=== PATIENT | male | born 1960 | race Caucasian/White ===

== ENCOUNTER 2019-04-28 08:00 | Outpatient (REF) | payer OTHER, SELFPAY ==
[2019-04-28 19:24] LABS: Anion Gap 10.2 mmol/L (3-11); BUN 18 mg/dL (7-18); CO2 24.8 mmol/L (21.0-32.0); CREATININE 1.07 mg/dL (0.70-1.30); Calcium 9.2 mg/dL (8.5-10.1); Calculated LDL 180 mg/dL; Chloride 105 mmol/L (98-107); Cholesterol 252 mg/dL (50-200); Glucose 109 mg/dL (70-100); HDL Cholesterol 35 mg/dL (40-60); Potassium 4.7 mmol/L (3.5-5.1); Sodium 140 mmol/L (136-145); Triglyceride 189 mg/dL (30-150)
== END 2019-04-28 08:20 ==
LOC: NCHCN 08:00
PROVIDERS: PCP Internal Medicine; Visit Provider Internal Medicine
DX: I10 Essential (primary) hypertension (principal); E78.5 Hyperlipidemia, unspecified
CPT/HCPCS: 80048; 80061

== ENCOUNTER 2019-12-04 12:18 | Outpatient (REF) | payer OTHER, SELFPAY ==
[2019-12-04 22:11] LABS: Hemoglobin A1C 5.7 % (3.8-5.6)
[2019-12-04 22:12] LABS: Calculated LDL 195 mg/dL (<100); Cholesterol 278 mg/dL (<200); Glucose 98 mg/dL (74-106); HDL Cholesterol 38 mg/dL (40-60); Triglyceride 225 mg/dL (<150)
== END 2019-12-04 12:38 ==
LOC: NCHCN 12:18
PROVIDERS: PCP Internal Medicine; Visit Provider Internal Medicine
DX: E78.5 Hyperlipidemia, unspecified (principal); Z00.00 Encounter for general adult medical examination without abnormal findings
CPT/HCPCS: 80061; 82947; 83036

== ENCOUNTER 2020-04-17 19:10 | Outpatient (REF) | payer OTHER, SELFPAY ==
[2020-04-17 22:47] LABS: Anion Gap 8.2 mmol/L (3-11); BUN 29 mg/dL (7-18); CO2 25.8 mmol/L (21.0-32.0); CREATININE 1.19 mg/dL (0.70-1.30); Calcium 9.8 mg/dL (8.5-10.1); Chloride 107 mmol/L (98-107); Glucose 98 mg/dL (74-106); Potassium 4.3 mmol/L (3.5-5.1); Sodium 141 mmol/L (136-145)
== END 2020-04-17 19:30 ==
LOC: NCHCN 19:10
PROVIDERS: PCP Internal Medicine; Visit Provider Nurse Practitioner Family
DX: R03.0 Elevated blood-pressure reading, without diagnosis of hypertension (principal); E78.5 Hyperlipidemia, unspecified
CPT/HCPCS: 80048

== ENCOUNTER 2020-12-31 18:23 | Outpatient (REF) | payer SELFPAY ==
[2020-12-31 22:22] LABS: Anion Gap 10.4 mmol/L (3-11); BUN 25 mg/dL (7-18); CO2 25.6 mmol/L (21.0-32.0); CREATININE 1.1 mg/dL (0.70-1.30); Calcium 9.6 mg/dL (8.5-10.1); Chloride 108 mmol/L (98-107); Glucose 102 mg/dL (74-106); Potassium 4.3 mmol/L (3.5-5.1); Sodium 144 mmol/L (136-145)
[2020-12-31 22:51] LABS: PROTEIN 8.6 mg/dL
[2020-12-31 22:55] LABS: COMMENT (LAB VIEW ONLY) 75.88 mg/dL; Prot/Crea Ur Ratio 0.11
== END 2020-12-31 18:24 | disposition home or self-care (01) ==
LOC: NCHCN 18:23
PROVIDERS: PCP Internal Medicine; Visit Provider Nurse Practitioner Family
DX: R03.0 Elevated blood-pressure reading, without diagnosis of hypertension (principal); N20.0 Calculus of kidney
CPT/HCPCS: 80048; 82565; 84156

== ENCOUNTER 2021-01-29 16:26 | Outpatient (REF) | payer SELFPAY ==
[2021-01-29 21:38] LABS: Anion Gap 11.7 mmol/L (3-11); BUN 31 mg/dL (7-18); CO2 23.3 mmol/L (21.0-32.0); CREATININE 1.1 mg/dL (0.70-1.30); Chloride 107 mmol/L (98-107); Glucose 137 mg/dL (74-106); Potassium 4.4 mmol/L (3.5-5.1); Sodium 142 mmol/L (136-145)
== END 2021-01-29 16:27 | disposition home or self-care (01) ==
LOC: NCHCN 16:26
PROVIDERS: PCP Internal Medicine; Visit Provider Nurse Practitioner Family
DX: I10 Essential (primary) hypertension (principal)
CPT/HCPCS: 80048

== ENCOUNTER 2024-08-11 08:31 | Outpatient (REF) | payer MEDICARE, SELFPAY ==
[2024-08-11 15:06] LABS: HCT 47.5 % (40.0-50.0); HGB 15.7 g/dL (13.5-17.5); MCH 29.2 pg (27.0-33.0); MCHC 33.1 % (32.0-36.0); MCV 88 fL (80-95); MPV 10.3 fL (8.0-11.0); Platelet Count 262 10^3/uL (130-400); RBC 5.38 10^6/uL (4.36-5.78); RDW 12.3 % (11.8-14.1); WBC 7.99 10^3/uL (4.4-10.8)
[2024-08-11 15:23] LABS: ALT 30 U/L (16-63); AST 29 U/L (15-37); Albumin 4.3 g/dL (3.4-5.0); Alkaline Phosphatase 78 U/L (46-116); Anion Gap 5.9 mmol/L (3-11); BUN 29 mg/dL (7-18); Bilirubin, Total 0.61 mg/dL (0.2-1.0); CO2 27.1 mmol/L (21.0-32.0); CREATININE 1.1 mg/dL (0.70-1.30); Calcium 9.9 mg/dL (8.5-10.1); Calculated LDL 199 mg/dL (<100); Chloride 108 mmol/L (98-107); Cholesterol 272 mg/dL (<200); Glucose 100 mg/dL (74-106); HDL Cholesterol 48 mg/dL (>or=40); Potassium 4.5 mmol/L (3.5-5.1); Sodium 141 mmol/L (136-145); Total Protein 7.5 g/dL (6.4-8.2); Triglyceride 125 mg/dL (<150)
[2024-08-11 15:31] LABS: Hemoglobin A1C 5.5 % (<5.7)
== END 2024-08-11 08:32 | disposition home or self-care (01) ==
LOC: NCHCN 08:31
PROVIDERS: PCP Internal Medicine; Visit Provider Physician Assistant
DX: I10 Essential (primary) hypertension (principal); R73.03 Prediabetes
CPT/HCPCS: 80053; 80061; 85027; 83036

== ENCOUNTER 2025-04-10 08:38 | Outpatient (REF) | payer MEDICARE, SELFPAY ==
[2025-04-10 15:02] LABS: Calculated LDL 194 mg/dL (<100); Cholesterol 256 mg/dL (<200); HDL Cholesterol 44 mg/dL (>or=40); Triglyceride 91 mg/dL (<150)
== END 2025-04-10 08:39 | disposition home or self-care (01) ==
LOC: NCHCN 08:38
PROVIDERS: PCP Internal Medicine; Visit Provider Physician Assistant
DX: E78.5 Hyperlipidemia, unspecified (principal)
CPT/HCPCS: 80061